=== PATIENT | female | born 1995 | race Caucasian/White ===

== ENCOUNTER 2016-12-24 13:51 | Emergency (ER) | payer SELFPAY ==
[2016-12-24 14:20] VITALS: BP 163/81
--- NOTE | 2016-12-24 14:53 | UC ---
Abdominal Pain Female HPI - HPI Summary HPI Summary: 21 YEAR OLD FEMALE PRESENTS WITH COMPLAINS OF RLQ PAIN. I WILL SEND HER TO THE ER TO RULE OUT APPENDICITIS/TORSION/CYSTS. - History of Current Complaint Chief Complaint: UCAbdominalPain Stated Complaint: ABDOMINAL PAIN Time Seen by Provider: 12/24/16 14:50 Hx Last Menstrual Period: 11/09/16 Allergies/Adverse Reactions: Allergies Allergy/AdvReac Type Severity Reaction Status Date / Time Penicillins Allergy Hives Verified 12/24/16 16:08 Home Medications: Home Medications NK [No Home Medications Reported] 12/24/16 [History Confirmed 12/24/16] PMH/Surg Hx/FS Hx/Imm Hx Previously Healthy: Yes - Surgical History Surgical History: None - Social History Alcohol Use: Rare Substance Use Type: None Smoking Status (MU): Never Smoked Tobacco Review of Systems Constitutional: Negative Skin: Negative Eyes: Negative ENT: Negative Respiratory: Negative Cardiovascular: Negative Gastrointestinal: Abdominal Pain, Other - RLQ Genitourinary: Negative Motor: Negative Neurovascular: Negative Musculoskeletal: Negative Neurological: Negative Psychological: Negative All Other Systems Reviewed And Are Negative: Yes Physical Exam Triage Information Reviewed: Yes Vital Signs: Initial Vital Signs Temp 36.6 C 12/24/16 14:16 Pulse 71 12/24/16 14:16 Resp 16 12/24/16 14:16 BP 163/81 12/24/16 14:16 Pulse Ox 100 12/24/16 14:16 Eye Exam: Normal ENT Exam: Normal Dental Exam: Normal Neck exam: Normal Neck: Positive: 1 Respiratory Exam: Normal Cardiovascular Exam: Normal Abdomen Description: Positive: McBurney's Point Tenderness Musculoskeletal Exam: Normal Neurological Exam: Normal Psychological Exam: Normal Skin Exam: Normal Abd Pain Female Course/Dx - Differential Dx/Diagnosis Provider Diagnoses: RLQ PAIN Discharge - Discharge Plan Condition: Stable Disposition: HOME Patient Education Materials: Acute Abdominal Pain (ED) Referrals: No Primary Care Phys,NOPCP [Primary Care Provider] - Additional Instructions: PLEASE GO TO ER TO RULE OUT APPENDICITIS.
== END 2016-12-24 15:01 | disposition home or self-care (01) ==
LOC: UCEAST 13:51 → MERGE 13:51 → UCEAST 15:01
DX: R10.31 Right lower quadrant pain (principal); Z88.0 Allergy status to penicillin
CPT/HCPCS: 99201; G0463

== ENCOUNTER 2016-12-24 16:06 | Emergency (ER) | payer SELFPAY ==
[2016-12-24] MEDS ORDERED: NS 0.9% 1000 ML* 1,000 ML IV ONE (19:26)
[2016-12-24 19:34] LABS: Hematocrit 34 % (35-47); Hemoglobin 11.6 g/dl (12.0-16.0); Mean Corpuscular HGB Conc 35 g/dl (31-36); Mean Corpuscular Hemoglobin 33 pg (27-31); Mean Corpuscular Volume 95 fL (80-97); Mean Platelet Volume 8 um3 (7.4-10.4); Red Blood Count 3.56 10^6/ul (4.0-5.4); Red Cell Distribution Width 13 % (10.5-15); White Blood Count 10.4 10^3/ul (3.5-10.8)
[2016-12-24 19:39] LABS: Urine Bilirubin Negative (Negative); Urine Glucose Negative (Negative); Urine Nitrite Negative (Negative)
[2016-12-24 19:49] LABS: Albumin 3.5 g/dL (3.2-5.2); BUN/Creatinine Ratio 20.4 (8-20); C Reactive Protein 11.41 mg/L (< 5.00); EGFR African American 183.3 (>60); EGFR Non-African American 142.5 (>60); Total Bilirubin 0.2 mg/dL (0.2-1.0); Total Protein 6.5 g/dL (6.4-8.9)
--- NOTE | 2016-12-24 20:33 | RAD ---
INDICATION: Right lower quadrant pain. COMPARISON: None TECHNIQUE: Real time ultrasound images of the right lower quadrant were acquired in caceres scale and Doppler color flow. FINDINGS: The appendix is not discreetly visualized. Normal loops of bowel are seen. There is no acute inflammatory change, measurable lymphadenopathy or drainable fluid collection. IMPRESSION: Nonvisualization of the appendix.
--- NOTE | 2016-12-24 20:33 | RAD ---
INDICATION: Right lower quadrant pain in a woman unaware of her Comparison: None Multiple transabdominal real time images of the gravid uterus were obtained. This exam demonstrates a single intrauterine in the Cephalic presentation. heart and limb motion were noted. The heart rate was 147 beats per minute. The placenta was located anterior position. There is no placenta previa. The amniotic fluid volume appeared to be within normal limits within BRIANA measuring 11 cm. The cervix is closed measuring 4 cm in length. Biparietal diameter (cm) 5.0 which corresponds to a gestational age of 21 weeks and 2 days. Head circumference (cm) 20.2 which corresponds to a gestational age of 22 weeks and 3 days. abdominal circumference(cm) 17.5 which corresponds to a gestational age of 22 weeks and 4 days. femur length (cm) 4. which corresponds to a gestational age of 20 weeks and 6 days. The composite estimated gestational age was 20 weeks and 2 days. The estimated weight at this time is 572 grams +/- 75 grams. The four-chamber heart, cord insertion, bladder and three-vessel cord are visualized and appear to be within normal limits. IMPRESSION: Normal appearing single live intrauterine gestation with growth parameters yielding a mean gestational age of 22 weeks and 2 days.
--- NOTE | 2016-12-24 21:46 | ED ---
Yogi Dominguez Benjamin, scribed for Pacheco Alexander MD on 12/24/16 at 1923 . Abdominal Pain/Female - HPI Summary HPI Summary: 21yo female coming from to r/o appendicitis. Pt reports intermittent RLQ and suprapubic pain of 6 out of 10 scale for about a few weeks. Pt states that pt gets constant pressure that intermittently becomes painful. Pain is worse after eating. Pain is now 2/10. Reports reduced appetite, and polydipsia. Pt also reports amenorrhea for 2 months, when she usually gets very regular periods previously. Pt has been off BCP 6 months ago but her periods were still normal and regular until 2 months ago. Pt took test recently, which came back negative. Pt is sexually active however. Denies fever, chills, any bloody or black stool, or vaginal discharge. Hx of chronic back pain. - History of Current Complaint Chief Complaint: Burt Stated Complaint: [facility]BD [facility] Time Seen by Provider: 12/24/16 19:06 Hx Obtained From: Patient Hx Last Menstrual Period: 11/09/16 ?: No Onset/Duration: Gradual Onset, Lasting Weeks - "few weeks", Still Present Timing: Intermittent Episode Lasting Severity Initially: Mild Severity Currently: Mild Pain Intensity: 2 Pain Scale Used: 0-10 Numeric Location: Discrete At: RLQ, Suprapubic Radiates: No Aggravating Factor(s): Food Alleviating Factor(s): Nothing Associated Signs and Symptoms: Positive: Back Pain - chronic, Decreased Appetite. Negative: Fever, Blood in Stool, Urinary Symptoms, Vaginal Bleeding Allergies/Adverse Reactions: Allergies Allergy/AdvReac Type Severity Reaction Status Date / Time Penicillins Allergy Hives Verified 12/24/16 16:08 PMH/Surg Hx/FS Hx/Imm Hx Previously Healthy: Yes Cardiovascular History: Denies: Hx Hypertension Infectious Disease History: No Infectious Disease History: Denies: Traveled Outside the [place] in Last 30 Days - Family History Known Family History: Negative: Cardiac Disease, Hypertension, Diabetes - Social History Occupation: Employed Full-time Lives: Alone Alcohol Use: Rare Substance Use Type: Reports: None Smoking Status (MU): Never Smoked Tobacco Review of Systems Constitutional: Negative Negative: Fever, Chills Eyes: Negative ENT: Negative Cardiovascular: Negative Respiratory: Negative Positive: Abdominal Pain - RLQ and suprapubic pain, Other - reduced appetite Genitourinary: Other - amenorrhea for 2 months Negative: dysuria, discharge, frequency, hematuria, pain Musculoskeletal: Negative Skin: Negative Neurological: Negative Psychological: Normal All Other Systems Reviewed And Are Negative: Yes Physical Exam Triage Information Reviewed: Yes Vital Signs On Initial Exam: Initial Vitals Temp Pulse Resp BP Pulse Ox 97 F 91 16 139/85 99 12/24/16 16:09 12/24/16 16:09 12/24/16 16:09 12/24/16 16:09 12/24/16 16:09 Vital Signs Reviewed: Yes Appearance: Positive: Well-Appearing, No Pain Distress, Well-Nourished Skin: Positive: Warm, Skin Color Reflects Adequate Perfusion, Dry Head/Face: Positive: Normal Head/Face Inspection Eyes: Positive: EOMI, MARIBEL ENT: Positive: Normal ENT inspection, Hearing grossly normal Neck: Positive: Supple, Nontender Respiratory/Lung Sounds: Positive: Clear to Auscultation, Breath Sounds Present Cardiovascular: Positive: RRR Abdomen Description: Positive: Soft, Other: - RLQ and suprapubic tenderness to palpation, non tender elsewhere. mild positive heel strike and obturator sign. Bowel Sounds: Positive: Present Musculoskeletal: Positive: Strength/ROM Intact Neurological: Positive: Sensory/Motor Intact, Alert, Oriented to Person Place, Time, CN Intact II-III Psychiatric: Positive: Affect/Mood Appropriate - Shirley Coma Scale Coma Scale Total: 15 Diagnostics - Vital Signs Vital Signs Temp Pulse Resp BP Pulse Ox 12/24/16 17:53 85 99 12/24/16 17:51 145/82 12/24/16 17:50 97.7 F 87 18 145/82 99 12/24/16 16:09 97 F 91 16 139/85 99 - Laboratory Lab Results: Lab Results 12/24/16 12/24/16 12/24/16 Range/Units 19:28 19:28 19:28 WBC 10.4 (3.5-10.8) 10^3/ul RBC 3.56 L (4.0-5.4) 10^6/ul Hgb 11.6 L (12.0-16.0) g/dl Hct 34 L (35-47) % MCV 95 (80-97) fL MCH 33 H (27-31) pg MCHC 35 (31-36) g/dl RDW 13 (10.5-15) % Plt Count 281 (150-450) 10^3/ul MPV 8 (7.4-10.4) um3 Neut % (Auto) 68.3 (38-83) % Lymph % (Auto) 24.1 L (25-47) % [place] % (Auto) 6.3 (1-9) % Eos % (Auto) 1.0 (0-6) % Baso % (Auto) 0.3 (0-2) % Absolute Neuts (auto) 7.1 (1.5-7.7) 10^3/ul Absolute Lymphs (auto) 2.5 (1.0-4.8) 10^3/ul Absolute Monos (auto) 0.7 (0-0.8) 10^3/ul Absolute Eos (auto) 0.1 (0-0.6) 10^3/ul Absolute Basos (auto) 0 (0-0.2) 10^3/ul Absolute Nucleated RBC 0.01 10^3/ul Nucleated RBC % 0 Sodium 135 (133-145) mmol/L Potassium 4.0 (3.5-5.0) mmol/L Chloride 105 (101-111) mmol/L Carbon Dioxide 24 (22-32) mmol/L Anion Gap 6 (2-11) mmol/L BUN 11 (6-24) mg/dL Creatinine 0.54 (0.51-0.95) mg/dL Est GFR ( Amer) 183.3 (>60) Est GFR (Non-Af Amer) 142.5 (>60) BUN/Creatinine Ratio 20.4 H (8-20) Glucose 82 (70-100) mg/dL Lactic Acid (0.5-2.0) mmol/L Calcium 9.0 (8.6-10.3) mg/dL Total Bilirubin 0.20 (0.2-1.0) mg/dL AST 16 (13-39) U/L ALT 12 (7-52) U/L Alkaline Phosphatase 69 (34-104) U/L C-Reactive Protein 11.41 H (< 5.00) mg/L Total Protein 6.5 (6.4-8.9) g/dL Albumin 3.5 (3.2-5.2) g/dL Globulin 3.0 (2-4) g/dL Albumin/Globulin Ratio 1.2 (1-3) Lipase 18 (11.0-82.0) U/L Beta HCG, Quant 11378.00 mIU/mL Urine Color Yellow Urine Appearance Cloudy Urine pH 7.0 (5-9) Ur Specific [place] 1.015 (1.010-1.030) Urine Protein Negative (Negative) Urine Ketones Negative (Negative) Urine Blood Negative (Negative) Urine Nitrate Negative (Negative) Urine Bilirubin Negative (Negative) Urine Urobilinogen Negative (Negative) Ur Leukocyte Esterase Negative (Negative) Urine Glucose Negative (Negative) 12/24/16 Range/Units 19:28 WBC (3.5-10.8) 10^3/ul RBC (4.0-5.4) 10^6/ul Hgb (12.0-16.0) g/dl Hct (35-47) % MCV (80-97) fL MCH (27-31) pg MCHC (31-36) g/dl RDW (10.5-15) % Plt Count (150-450) 10^3/ul MPV (7.4-10.4) um3 Neut % (Auto) (38-83) % Lymph % (Auto) (25-47) % [place] % (Auto) (1-9) % Eos % (Auto) (0-6) % Baso % (Auto) (0-2) % Absolute Neuts (auto) (1.5-7.7) 10^3/ul Absolute Lymphs (auto) (1.0-4.8) 10^3/ul Absolute Monos (auto) (0-0.8) 10^3/ul Absolute Eos (auto) (0-0.6) 10^3/ul Absolute Basos (auto) (0-0.2) 10^3/ul Absolute Nucleated RBC 10^3/ul Nucleated RBC % Sodium (133-145) mmol/L Potassium (3.5-5.0) mmol/L Chloride (101-111) mmol/L Carbon Dioxide (22-32) mmol/L Anion Gap (2-11) mmol/L BUN (6-24) mg/dL Creatinine (0.51-0.95) mg/dL Est GFR ( Amer) (>60) Est GFR (Non-Af Amer) (>60) BUN/Creatinine Ratio (8-20) Glucose (70-100) mg/dL Lactic Acid 0.6 (0.5-2.0) mmol/L Calcium (8.6-10.3) mg/dL Total Bilirubin (0.2-1.0) mg/dL AST (13-39) U/L ALT (7-52) U/L Alkaline Phosphatase (34-104) U/L C-Reactive Protein (< 5.00) mg/L Total Protein (6.4-8.9) g/dL Albumin (3.2-5.2) g/dL Globulin (2-4) g/dL Albumin/Globulin Ratio (1-3) Lipase (11.0-82.0) U/L Beta HCG, Quant mIU/mL Urine Color Urine Appearance Urine pH (5-9) Ur Specific [place] (1.010-1.030) Urine Protein (Negative) Urine Ketones (Negative) Urine Blood (Negative) Urine Nitrate (Negative) Urine Bilirubin (Negative) Urine Urobilinogen (Negative) Ur Leukocyte Esterase (Negative) Urine Glucose (Negative) Result Diagrams: 12/24/16 19:28 08 19:28 Lab Statement: Any lab studies that have been ordered have been reviewed, and results considered in the medical decision making process. - Additional Comments Diagnostic Additional Comments: US ABDOMEN LIMITED IMPRESSION: Nonvisualization of the appendix. US PREGNACY LIMITED IMPRESSION: Normal appearing single live intrauterine gestation with growth parameters yielding a mean gestational age of 22 weeks and 2 days. Re-Evaluation - Re-Evaluation First Eval Re-Evaluation Time: 19:49 Comment: Informed the pt that she is 21 week . Abdominal Pain Fem Course/Dx - Course Course Of Treatment: Reviewed pts medication and allergy lists. DISCUSSED RESULTS WITH PATIENT. PATIENT WAS NOT AWARE THAT SHE WAS AND HAS NOT HAD ANY PRE CARE. SHE LIVES IN [facility] AND WILL SEE HER OBGYN THERE. PAIN HAS BEEN ON AND OFF FOR 2 WEEKS, NO FEVER, ABLE TO EAT, WBC NORMAL; ALL MAKING APPENDICITIS UNLIKELY. THIS WAS ALL DISCUSSED WITH THE PATIENT. SHE WILL RETURN TO THE ED IF WORSE. - Diagnoses Provider Diagnoses: Abdominal pain during , Discharge - Discharge Plan Condition: Stable Disposition: HOME Prescriptions: Vitamin [Calna] 1 tab PO DAILY #90 tab Patient Education Materials: Abdominal Pain in (ED), (ED) Referrals: No Primary Care Phys,NOPCP [Primary Care Provider] - Additional Instructions: FOLLOW UP WITH YOUR OBGYN. CALL TOMORROW TO GET AN APPOINTMENT. START PRE MULTIPLE VITAMINS. RETURN TO THE EMERGENCY DEPARTMENT FOR ANY WORSENING OF YOUR CONDITION; PAIN, FEVER, YOU FEEL ILL OR QUESTIONS OR CONCERNS. The documentation as recorded by the Yogi houser Benjamin accurately reflects the service I personally performed and the decisions made by me, Pacheco Alexander MD.
[2016-12-24 21:58] VITALS: BP 133/76
== END 2016-12-24 21:57 | disposition home or self-care (01) ==
LOC: MERGE 16:06 → ED 16:06
DX: O26.892 Other specified pregnancy related conditions, second trimester (principal); R10.31 Right lower quadrant pain; M54.9 Dorsalgia, unspecified; Z3A.21 21 weeks gestation of pregnancy
CPT/HCPCS: 36415; 76705; 76815; 80053; 81003; 83605; 83690; 84702; 85025; 86140; 96360; 99283

== ENCOUNTER → 2018-01-22 11:42 | Emergency (ER) | payer SELFPAY ==
[~2018-01-22 11:42] MED LIST: Albuterol 2.5 MG/3 ML NEB.SOL* (0.083%) INH ONE; Cetirizine* 10 MG TAB PO ONE; LoraTADine TAB(NF) 10 MG TAB (AUTOSUB to CETIRIZINE) PO ONE
--- NOTE | 2018-01-22 12:45 | RAD ---
HISTORY: SOB COMPARISONS: None VIEWS: 4: Frontal dual-energy and lateral views of the chest. FINDINGS: CARDIOMEDIASTINAL SILHOUETTE: The cardiomediastinal silhouette is normal. JIMBO: The jimbo are normal. PLEURA: The costophrenic angles are sharp. No pleural abnormalities are noted. LUNG PARENCHYMA: The lungs are clear. ABDOMEN: The upper abdomen is clear. There is no subphrenic gas. BONES AND SOFT TISSUES: No bone or soft tissue abnormalities are noted. OTHER: None. IMPRESSION: NO ACTIVE CARDIOPULMONARY DISEASE.
[2018-01-22 14:59] VITALS: BP 144/78
--- NOTE | 2018-01-22 16:08 | ED ---
Allergic Reaction/Systemic - HPI Summary HPI Summary: Pt. is a 22 y.o female who presents to the ER for CP and SOB after eating a chocolate scone. Pt. denies any known food allergies. Pt. states shortly after eating scone she started having a dry cough, SOB and CP. No rashes, face or mouth swelling. Pt. denies significant past medical hx. Pt. otherwise denies recent illness. Symptoms are moderate in severity. No current modifying factors. - History of Current Complaint Chief Complaint: EDChestWallPain Time Seen by Provider: 01/22/18 11:55 Hx Obtained From: Patient Hx Last Menstrual Period: 11/09/16 Pain Intensity: 1 - Allergies/Home Medications Allergies/Adverse Reactions: Allergies Allergy/AdvReac Type Severity Reaction Status Date / Time MS Penicillins [PCN] Allergy Rash Verified 10/13/16 15:01 PMH/Surg Hx/FS Hx/Imm Hx Previously Healthy: Yes Endocrine/Hematology History: Denies: Hx Anticoagulant Therapy Cardiovascular History: Denies: Hx Hypertension Infectious Disease History: No Infectious Disease History: Denies: Traveled Outside the [place] in Last 30 Days - Family History Known Family History: Negative: Cardiac Disease, Hypertension, Diabetes - Social History Occupation: Employed Full-time Lives: With Family Alcohol Use: Occasionally Alcohol Amount: 3-5 drinks per week, 1-2 times per week Substance Use Type: Reports: None Smoking Status (MU): Never Smoked Tobacco Review of Systems Constitutional: Negative Eyes: Negative ENT: Negative Positive: Chest Pain Positive: Shortness Of Breath, Cough Skin: Negative Negative: Rash Neurological: Negative All Other Systems Reviewed And Are Negative: Yes Physical Exam Triage Information Reviewed: Yes Vital Signs On Initial Exam: Initial Vitals Temp Pulse Resp BP Pulse Ox 98.3 F 88 17 143/94 100 01/22/18 11:46 01/22/18 11:46 01/22/18 11:46 01/22/18 11:46 01/22/18 11:46 Vital Signs Reviewed: Yes Appearance: Positive: Well-Appearing - Pt. sitting on side of bed in NAD. Breathing easily on RA. Skin: Positive: Warm, Dry Head/Face: Positive: Normal Head/Face Inspection Eyes: Positive: Normal, EOMI ENT: Positive: Pharynx normal, TMs normal Neck: Positive: Supple Respiratory/Lung Sounds: Positive: Other - Very mild expiratory wheeze in bilateral bases. Negative: Rales, Rhonchi, Stridor, Tracheal Deviation, Unable to speak in full sentences Cardiovascular: Positive: Normal, RRR Neurological: Positive: Normal, CN Intact II-III Psychiatric: Positive: Affect/Mood Appropriate Diagnostics - Vital Signs Vital Signs Temp Pulse Resp BP Pulse Ox 01/22/18 14:58 98.9 F 71 16 144/78 100 01/22/18 12:23 88 12 98 01/22/18 12:13 98.5 F 84 12 142/81 98 01/22/18 11:46 98.3 F 88 17 143/94 100 - Laboratory Lab Statement: Any lab studies that have been ordered have been reviewed, and results considered in the medical decision making process. Allergic Reaction Course/Dx - Course Course Of Treatment: Pt. presenting with the above complaints. She has no rash or evidence of anaphylaxis. She is afebrile and very well appearing. O2 saturation is 100% on RA which is normal. Pt. does have slight wheeze on exam. Will give breathing tx and antihistamine. ECG done at 1342 shows a sinus rhythm of 72 bpm, normal axis, appropriate intervals, no ST elevation or depression. CXR is negative for acute findings per radiology. On re-exam pt. notes she is feeling better but is still c/o mild CP. She has no risk factors for PE. Will dc home on ventolin inhaler and zyrtec. Pt. is comfortable with this plan. To call PCP today for close f.u apt. and return to ER if sxs change or worse. Pt. understands and agree with plan. - Diagnoses Provider Diagnoses: Bronchospasm, Atypical chest pain Discharge - Sign-Out/Discharge Documenting (check all that apply): Patient Departure - Discharge Plan Condition: Good Disposition: HOME Prescriptions: Albuterol HFA INHALER* [Ventolin HFA Inhaler*] 1 puff INH Q4H PRN #1 mdi PRN Reason: Wheezing Cetirizine* [ZyrTEC 10 MG TAB*] 10 mg PO DAILY #14 tab Patient Education Materials: Chest Pain (ED), Allergies (ED), Bronchospasm (ED) Referrals: [facility] [Outside] No Primary Care Phys,NOPCP [Primary Care Provider] - Additional Instructions: Call the [facility] today to schedule an appointment Medication as directed Return to ER if symptoms change or worsen - Billing Disposition and Condition Condition: GOOD Disposition: Home
== END | disposition home or self-care (01) ==
LOC: ED 11:42
DX: R07.89 Other chest pain (principal); R06.02 Shortness of breath; R05 Cough; Z88.0 Allergy status to penicillin
CPT/HCPCS: 71046; 93005; 99282; A9270-GY